=== PATIENT | male | born 1960 | race African-American/Black ===

== ENCOUNTER 2019-02-12 17:23 | Emergency (ER) | payer OTHER ==
[~2019-02-12] VITALS: Ht 167.6 cm; Wt 48.1 kg
[2019-02-12 17:23] VITALS: Ht 167.6 cm; Wt 48.1 kg
[2019-02-12 18:34] LABS: BASOPHIL % 0.1 % (0-2); PLATELET COUNT 375 x10^3mcL (130-400); RED CELL DISTRIBUTION WIDTH 14.3 % (11.5-14.5)
[2019-02-12 18:50] LABS: ALKALINE PHOSPHATASE 336 U/L (46-116); BILIRUBIN TOTAL 0.3 mg/dL (0.20-1.00); CARBON DIOXIDE 25.8 mmol/L (21-32); CREATININE SERUM 1.1 mg/dL (0.7-1.3); GFR1 > 60 mL/min; MAGNESIUM 1.6 mg/dL (1.8-2.4); PHOSPHOROUS 3.1 mg/dL (2.5-4.9); TOTAL PROTEIN, SERUM 8.1 g/dL (6.4-8.2)
[2019-02-12 18:56] LABS: ALBUMIN 3.2 g/dL (3.4-5.0)
[2019-02-12 19:02] LABS: ALT/SGPT 35 U/L (16-63); AST/SGOT 38 U/L (15-37)
[2019-02-12 19:11] LABS: AMPHETAMINE QUAL UR NONE DETECTED (See below)
[2019-02-12 19:25] LABS: GLUCOSE SERUM 870 mg/dL (74-106)
[2019-02-12 19:26] LABS: CHLORIDE SERUM 87 mmol/L (98-107); POTASSIUM SERUM 4.1 mmol/L (3.5-5.1)
[2019-02-12 19:46] LABS: SODIUM SERUM 122 mmol/L (136-145)
[2019-02-13 00:16] VITALS: BP 140/95
== END 2019-02-13 00:16 | disposition short-term general hospital (02) ==
LOC: ED 17:23
PROVIDERS: Emergency Medicine
DX: E11.00 Type 2 diabetes mellitus with hyperosmolarity without nonketotic hyperglycemic-hyperosmolar coma (NKHHC) (principal); R07.89 Other chest pain
CPT/HCPCS: 82962; J1815; J7030; Q0092

== ENCOUNTER 2020-03-14 17:35 | Emergency (ER) | payer OTHER ==
[~2020-03-14] VITALS: Ht 167.6 cm; Wt 39.0 kg
[2020-03-14 17:52] VITALS: Ht 167.6 cm; Wt 39.0 kg
[2020-03-14 19:54] LABS: BASOPHIL % 0.9 % (0-2); PLATELET COUNT 267 x10^3mcL (130-400)
[2020-03-14 19:55] LABS: RED CELL DISTRIBUTION WIDTH 18.2 % (11.5-14.5)
[2020-03-14 20:15] LABS: CALCIUM 8.4 mg/dL (8.5-10.1); CARBON DIOXIDE 30.9 mmol/L (21-32); CHLORIDE SERUM 96 mmol/L (98-107); CREATININE SERUM 0.9 mg/dL (0.7-1.3); GFR1 > 60 mL/min; GLUCOSE SERUM 340 mg/dL (74-106); POTASSIUM SERUM 3.6 mmol/L (3.5-5.1); SODIUM SERUM 133 mmol/L (136-145)
[2020-03-14 20:19] LABS: ALKALINE PHOSPHATASE 137 U/L (46-116); ALT/SGPT 15 U/L (16-63); AST/SGOT 9 U/L (15-37); BILIRUBIN TOTAL 0.23 mg/dL (0.20-1.00); TOTAL PROTEIN, SERUM 7.5 g/dL (6.4-8.2)
[2020-03-14 20:21] LABS: ALBUMIN 2.6 g/dL (3.4-5.0)
[2020-03-15 01:43] VITALS: BP 110/69
[2020-03-15 01:54] LABS: AMPHETAMINE QUAL UR POSITIVE (See below)
== END 2020-03-15 01:43 | disposition short-term general hospital (02) ==
LOC: ED 17:35
PROVIDERS: Emergency Medicine
DX: R45.851 Suicidal ideations (principal); F17.200 Nicotine dependence, unspecified, uncomplicated; Z59.0 Homelessness
CPT/HCPCS: 36415; 82962; 99406; G0480; Q0092